=== PATIENT | female | born 1985 ===

== ENCOUNTER 2016-12-10 16:57 | Emergency (ER) | payer SELFPAY ==
[~2016-12-10] VITALS: Ht 167.6 cm; Wt 56.0 kg
== END 2016-12-10 17:53 | disposition left against medical advice (07) ==
LOC: MERGE 17:47 → ED 17:47
DX: R07.9 Chest pain, unspecified (principal); R53.1 Weakness; I10 Essential (primary) hypertension
CPT/HCPCS: 93005; 99283